=== PATIENT | female | born 1995 | race Caucasian/White ===

== ENCOUNTER → 2022-10-04 | Outpatient (CLI) | payer OTHER ==
--- NOTE | 2022-10-04 13:18 | US ---
EXAMINATION TYPE: US OB Call Back DATE OF EXAM: 10/04/2022 COMPARISON: Prior ultrasound 2 weeks ago CLINICAL HISTORY: OB CALLBACK. GESTATIONAL AGE / DATING Dates by Initial Survey Scan: (19 weeks/3 days) EDC: 02/25/23 HEART RATE: 134 bpm RHYTHM: Normal ANATOMY SEEN (second anatomic survey look): Choroid Plexus (bilateral): possible unilateral cyst as on prior Nose / Lips: Longitudinal Spine: Transverse Spine: Single live intrauterine gestation is redemonstrated. 2 views spine and images of the nose and lips appear within normal limits on today's study. IMPRESSION: As above.
== END | disposition home or self-care (01) ==
LOC: RADUSWWP 12:25
PROVIDERS: ATTEND Obstetrics & Gynecology
DX: Z53.9 Procedure and treatment not carried out, unspecified reason (principal)

== ENCOUNTER → 2024-03-27 | Outpatient (CLI) | payer OTHER ==
[2024-03-28 01:57] LABS: Basophils # (A) 0.05 X 10*3/uL (0.00-0.10); Basophils % (A) 0.7 %; Eosinophils % (A) 1.3 %; HCT 41.7 % (37.2-46.3); HGB 13.4 g/dL (12.0-15.0); Lymphocytes # (A) 2.76 X 10*3/uL (0.90-5.00); Lymphocytes % (A) 36.8 %; MCH 28.9 pg (27.0-32.0); MCHC 32.1 g/dL (32.0-37.0); MCV 89.9 FL (80.0-97.0); Mean Platelet Volume 9.5 FL (9.5-12.2); Monocytes # (A) 0.44 X 10*3/uL (0.20-1.00); Monocytes % (A) 5.9 %; NRBC Per 100 WBC 0 X 10*3/uL (0.00-0.01); Neutrophils # (A) 4.13 X 10*3/uL (1.80-7.70); Platelet Count 344 X 10*3/uL (140-440); RBC 4.64 X 10*6/uL (4.10-5.20); RDW 12.6 % (11.5-14.5)
[2024-03-28 02:33] LABS: Appearance,Urine Clear (Clear); Bilirubin,Urine Negative (Negative); Blood,Urine Negative (Negative); Color,Urine Yellow (Yellow); Ketones,Urine Negative (Negative); Nitrite,Urine Negative (Negative); Specific Gravity,Urine 1.017 (1.001-1.030); Urobilinogen,Urine 0.2 E.U./DL
[2024-03-28 02:44] LABS: % Iron Saturation 29.56 (12.00-45.00); ALT 16 U/L (8-44); AST 20 U/L (13-35); Albumin 4.8 g/dL (3.8-4.9); Albumin/Globulin Ratio 2.09 Ratio (1.60-3.17); Alkaline Phosphatase 88 U/L (41-126); BUN/Creat Ratio 12.29 Ratio (12.00-20.00); Blood Urea Nitrogen 8.6 mg/dL (9.0-27.0); C Reactive Protein <0.30 mg/dL (0.00-0.80); Calcium 9.8 mg/dL (8.7-10.3); Carbon Dioxide 27.7 mmol/L (21.6-31.8); Chloride 101 mmol/L (96-109); Ferritin 48.2 ng/mL (10.0-291.0); Globulin 2.3 g/dL (1.6-3.3); Glucose 83 mg/dL (70-110); Iron 120 UG/DL (50-170); Sodium 140 mmol/L (135-145); Testosterone <10.00 ng/dL (9.01-47.94); Total Bilirubin 0.4 mg/dL (0.3-1.2); Total Iron Binding Capacity 406 UG/DL (228-460); Total Protein 7.1 g/dL (6.2-8.2)
[2024-03-28 04:07] LABS: Follicle Stimulating Hormone 4.4 mIU/mL
== END | disposition home or self-care (01) ==
LOC: LABWHC1 15:56
PROVIDERS: ATTEND Family Medicine
DX: Z00.00 Encounter for general adult medical examination without abnormal findings
CPT/HCPCS: 36415; 80053; 81003; 82607; 82670; 82728; 82747; 83001; 83540; 83550; 83735; 83970; 84146; 84402; 84403; 84443; 85025; 86140